=== PATIENT | male | born 1990 | race Caucasian/White ===

== ENCOUNTER 2018-04-21 16:00 | Emergency (ER) | payer OTHER ==
[2018-04-21 16:49] LABS: #Basophils 0.1 thou/uL (0.0-0.2); #Eosinphils 0.2 thou/uL (0.0-0.7); #Monocytes 0.8 thou/uL (0.11-0.59); #Neutrophils 3.8 thou/uL (1.40-6.50); %Basophils 0.8 % (0.0-1.0); %Eosinophils 2.4 % (0.0-10.0); %Monocytes 11.1 % (0.0-10.0); %Neutrophils 56.7 % (42.0-75.0); Mean Corpuscular HGB CONC 34.2 g/dL (32.0-36.0); Mean Corpuscular Hemoglobin 30.8 pg (27.0-31.0); Mean Corpuscular Volume 89.9 fL (78.0-98.0); Mean Platelet Volume 8.1 fL (7.4-10.4); Platelet Count 221 thou/uL (130-400); RBC Distribution Width 11.4 % (11.5-14.5); Red Blood Cell (RBC) Count 4.87 mill/uL (4.70-6.10); White Blood Cell (WBC) Count 6.8 thou/uL (4.8-10.8)
[2018-04-21] MEDS ORDERED: Ketorolac Tromethamine 30 MG/ML VIAL ONE (16:50)
--- NOTE | 2018-04-21 18:18 | ULT ---
TESTICULAR ULTRASOUND: 04/21/18 HISTORY: Right testicular pain and swelling. FINDINGS: Right testicle measures 3.8 cm x 5.6 cm x 3.3 cm. There is a heterogeneous mass-like structure seen w ithin the right testicle measuring 2.6 cm x 1.9 cm x 2.4 cm. The left testicle demonstrates a normal sonographic appearance and measures 3.1 cm x 5.2 cm x 3.3 cm. Doppler evaluation of each testicle with spectral analysis and color flow evaluation demonstrates bot h arterial and venous flow. The epididymes demonstrate a normal sonographic appearance bilaterally. There is a small oval shaped echogenic structure seen adjacent to the right testicle and epididymis probably related to a testicul ar appendix. There is a small right sided hydrocele noted. IMPRESSION: 1. Heterogeneous mass right testicle with largest measurement of 2.6 cm. 2. Normal appearing left testicle. 3. Small right hydrocele. 4. Above findings discussed with Blas Carrasco N.P., on 04/21/18 at 1746 hours. Urology consulta tion is recommended. POS: KENNY
[2018-04-21 18:35] LABS: Bilirubin Negative (Negative); Blood, Urine Negative (Negative); Clarity CLOUDY (Clear); Glucose, Urine (Dipstick) Negative (Negative); Leukocyte Negative (Negative); Nitrite Negative (Negative); Protein, Urine (Dipstick) Negative (Neg-Trace); Specific Gravity, Urine 1.019 (1.002-1.036); Urobilinogen 0.2 mg/dL (0.2-1.0); pH, Urine 7.5 (5.0-9.0)
== END 2018-04-21 19:04 | disposition home or self-care (01) ==
LOC: ERS 16:00
DX: N50.89 Other specified disorders of the male genital organs (principal)
CPT/HCPCS: 76870; 81003; 82105; 85025; 87086; 93976; 96374; J1885

== ENCOUNTER 2018-04-24 10:31 | Outpatient (CLI) | payer OTHER ==
--- NOTE | 2018-04-24 11:55 | RAD ---
PA AND LATERAL CHEST: History: Testicular mass, pre-operative evaluation. FINDINGS/IMPRESSION: The heart size is normal. The lungs are expanded and clear. The bony thorax is normal. IMPRESSION: Normal exam. POS: VEGAH
== END 2018-04-24 10:32 | disposition home or self-care (01) ==
LOC: RAD 10:31
PROVIDERS: ATTEND Urology
DX: N50.9 Disorder of male genital organs, unspecified (principal)
CPT/HCPCS: 71046

== ENCOUNTER 2018-04-30 13:07 | Outpatient (CLI) | payer OTHER ==
[2018-04-30 14:06] LABS: Mean Corpuscular HGB CONC 33.7 g/dL (32.0-36.0); Mean Corpuscular Hemoglobin 29.7 pg (27.0-31.0); Mean Corpuscular Volume 88.1 fL (78.0-98.0); Mean Platelet Volume 9.5 fL (7.4-10.4); Platelet Count 194 thou/uL (130-400); RBC Distribution Width 11.2 % (11.5-14.5); Red Blood Cell (RBC) Count 5.06 mill/uL (4.70-6.10); White Blood Cell (WBC) Count 7.2 thou/uL (4.8-10.8)
[2018-04-30 14:09] LABS: Bilirubin Negative (Negative); Blood, Urine Negative (Negative); Clarity CLEAR (Clear); Glucose, Urine (Dipstick) Negative (Negative); Leukocyte Negative (Negative); Nitrite Negative (Negative); Protein, Urine (Dipstick) Negative (Neg-Trace); Specific Gravity, Urine 1.007 (1.002-1.036); Urobilinogen 0.2 mg/dL (0.2-1.0); pH, Urine 7.5 (5.0-9.0)
[2018-04-30 14:12] LABS: Bacteria/HPF None Seen HPF (None Seen); Hyaline Casts/LPF 0-3 HYALINE CAST LPF (0-3 Hyaline); Prothrombin Time 13.1 SEC (12.0-14.7); RBC/HPF 0-3 HPF (0-3); Squamous Epithelial None Seen HPF (0-3); WBC/HPF None Seen HPF (0-3)
[2018-04-30 14:27] LABS: Anion Gap 11 mmol/L (10-20); BUN (Urea Nitrogen) 17 mg/dL (8.9-20.6); Calc. Creatinine Clearance 0 mL/min (70-130); Calcium 9.6 mg/dL (7.8-10.44); Carbon Dioxide 28 mmol/L (22-29); Chloride 104 mmol/L (98-107); Estimated GFR-MDRD 78; Glucose 88 mg/dL (70-105); Potassium 3.9 mmol/L (3.5-5.1); Sodium 139 mmol/L (136-145)
== END 2018-04-30 13:08 | disposition home or self-care (01) ==
LOC: LABBT 13:07
PROVIDERS: ATTEND Urology
DX: Z01.812 Encounter for preprocedural laboratory examination (principal); N50.9 Disorder of male genital organs, unspecified
CPT/HCPCS: 80048; 81001; 85027; 85610; 85730; 87086

== ENCOUNTER 2018-05-08 10:15 | Day surgery (SDC) | payer OTHER ==
[2018-04-30 13:32] VITALS: BMI 27.8
[2018-05-08] MEDS ORDERED: CEFAZOLIN/Water 2 GM/20 ML SYRINGE ONE (10:52)
[2018-05-08] MEDS ORDERED: Midazolam HCl 2 mg/2 ml Vial ONE ×2 (11:44→12:13)
[2018-05-08] MEDS ORDERED: Morphine 4 MG/ML VIAL ONE (12:13)
[2018-05-08] MEDS ORDERED: Fentanyl 250 MCG/5 ML VIAL ONE (12:13)
[2018-05-08] MEDS ORDERED: Bupivacaine 0.25% HCL 30 ML VIAL ONE (12:21)
[2018-05-08] MEDS ORDERED: Lidocaine 1% PF 5 ML VIAL ONE (13:20)
[2018-05-08] MEDS ORDERED: PROPOFOL 200 MG/20 ML VIAL ONE (13:20)
[2018-05-08] MEDS ORDERED: Ondansetron HCl/PF 4 MG/2 ML Vial ONE (13:20)
[2018-05-08] MEDS ORDERED: Dexamethasone 20 MG/5 ML VIAL ONE (13:20)
[2018-05-08] MEDS ORDERED: Ketorolac Tromethamine 30 MG/ML VIAL ONE (13:20)
[2018-05-08] MEDS ORDERED: Fentanyl 100 MCG/2 ML VIAL ONE (15:23)
[2018-05-08] MEDS ORDERED: HYDROcodone/Acetaminophen 5/325 mg Tablet ONE (16:34)
--- NOTE | 2018-05-08 18:26 | OP ---
DATE OF PROCEDURE: 05/08/2018 SERVICE: Urology. SURGEON: Hay Mcmanus M.D. PREOPERATIVE DIAGNOSIS: Right testicular mass. POSTOPERATIVE DIAGNOSIS: Right testicular mass. PROCEDURE PERFORMED: Right radical orchiectomy and scrotal ultrasound. INDICATIONS FOR PROCEDURE: Mr. Hansen is a 28-year-old white male who initially presented to [facility] with r ight-sided testicular pain, which was thought to be epididymitis, but on ultrasound, he had a heterog eneous mass within the testicle. CT did not demonstrate any retroperitoneal lymphadenopathy, but did confirm a heterogeneous mass within the right testis. Chest x-ray was also clear. Serum tumor ashwin ers were negative. After discussing options, the patient elected to go for right radical orchiectomy , although not 100%, there is a very high probability that does represents a testicular malignancy. He understands the possibility of benign disease and has agreed to proceed forward with right radical orchiectomy. DESCRIPTION OF PROCEDURE: After identification of armband and verification of consent, the patient w as brought back to the operating room and he underwent general anesthesia with an LMA. He was left i n the supine position and prepped and draped in usual sterile fashion. After appropriate timeout, a physical exam was performed, which demonstrated a subtle right-sided testicular mass. It was not tiara arent as the initial physical exam. Therefore, an ultrasound machine was brought in to confirm that the mass was actually still present and not resolving. The ultrasound demonstrated necrotic heteroge neous mass within the right testicle with likely right-sided liquefaction in the central area again o ut of concern for high likelihood of malignancy and discussion previously with the patient, we went a head and proceeded forward with orchiectomy. An incision was made along Aviva's lines above the ingu inal ligament approximately 5-6 cm. Dissection was carried down with Bovie electrocautery through Sc arpa's and Camper's fascia until the external oblique aponeurosis was identified. This was cleared o ff and a small indy was made in the external oblique aponeurosis and this was divided and opened towa rds the external ring. The cremaster muscle fibers were dissected free until the ilioinguinal ligame nt was identified, which was then dissected free of the surrounding tissues and moved inferiorly. Th e cord was isolated using a Alfredo drain for elevation and compression of the cord to try to limit m etastatic spread. The testis was delivered up through the external ring into the field and the guber nacular attachments divided. The surrounding tissues were then divided, which allowed for mobilizati on of the spermatic cord all the way up to the internal ring where the spermatic cord dove down into the retroperitoneum. The vas deferens began to separate from the cord structures. The cord was liga aris using 0 silk ties. Some of the fat was isolated with a single tie. The majority of the cord was isolated with a 0 silk tie and the vas deferens and deferential artery was isolated with a tie. Kingsley ly clamp was placed across the spermatic cord and the intervening tissues divided with Bovie electroc autery. The testis and spermatic cord was then passed off for routine pathologic evaluation. There was no significant bleeding noted from the cord after all sutures have been placed. A long tail was left on one of the silks for identification in case an RPLND was ever needed in the future. This was then pushed down into the retroperitoneal space. The ilioinguinal nerve was identified and found to be intact and unharmed. This was sprayed with 0.25% Marcaine plain. The external oblique aponeuros is was then reapproximated using a 3-0 PDS in a running fashion. Tyra's and Camper's fascia were t hen reapproximated using a 2-0 Vicryl in interrupted fashion. Approximately 10 mL of 0.25% Marcaine plain was then injected directly into the incision line and the skin closed with a subcuticular 4-0 M onocryl in a running fashion. Dermabond was then applied and the patient was then awakened and taken to PACU for recovery in stable condition. COMPLICATIONS: None. ESTIMATED BLOOD LOSS: Minimal. RETAINED TUBES AND DRAINS: None. PROSTHETICS: None. SPECIMEN: Right testis and spermatic cord. DISPOSITION: The patient will be discharged home and follow up with me as an outpatient for review o f his pathology and any adjuvant treatments if necessary.
== END 2018-05-08 18:15 | disposition home or self-care (01) ==
LOC: SDC 10:15
PROVIDERS: ATTEND Urology
PROC: 0VT90ZZ Resection of Right Testis, Open Approach (ICD-10-PCS; principal; 2018-05-08)
DX: N50.1 Vascular disorders of male genital organs (principal); Z79.2 Long term (current) use of antibiotics; Z88.2 Allergy status to sulfonamides
CPT/HCPCS: 88309; 96374; J1100; J1885; J2001; J2250; J2270; J2405; J2704; J3010; S0020

== ENCOUNTER 2019-08-27 09:35 | Outpatient (CLI) | payer OTHER ==
--- NOTE | 2019-08-27 13:39 | CT ---
CT ABDOMEN AND PELVIS WITH IV CONTRAST 08/27/2019 CLINICAL INFORMATION: Right lower quadrant abdominal pain for one month. Nausea and vomiting. COMPARISON: None. Technique: Multiple contiguous axial CT images are obtained through the abdomen and pelvis with IV contrast. Cor onal reformatted images are provided. FINDINGS: Lower Chest: within normal limits. Vessels: Abdominal aorta is normal in caliber without evidence of an aortic dissection. Abdomen: Portal vein:Patent Gallbladder: Within normal limits for CT imaging. Liver: within normal limits. Spleen: within normal limits. Pancreas: within normal limits. Adrenals: within normal limits. Kidneys: within normal limits. Bowel: Normal caliber. Appendix: The appendix is visualized and normal in caliber. Peritoneum: No ascites or free air; no fluid collection. Mesentery and Retroperitoneum: No enlarged mesenteric or retroperitoneal lymph nodes. Abdominal Wall: Small fat-containing umbilical hernia is noted. Pelvis: Reproductive Organs: No pelvic masses. Pelvis within normal limits. Bladder: within normal limits. Bones: Mild degenerative changes are present at the lumbosacral junction. Midline defect is seen in t he posterior elements S1 vertebral body likely developmental in origin. IMPRESSION: No acute findings in the abdomen or pelvis. There is no CT evidence of appendicitis.
== END 2019-08-27 09:36 | disposition home or self-care (01) ==
LOC: SCSCT 09:35
PROVIDERS: ATTEND Family Medicine
DX: R10.31 Right lower quadrant pain (principal)
CPT/HCPCS: 74177